=== PATIENT | male | born 1970 | race Caucasian/White ===

== ENCOUNTER 2018-01-05 14:35 | Emergency (ER) | payer SELFPAY ==
[~2018-01-05] VITALS: Ht 165.1 cm; Wt 68.2 kg
[2018-01-05 14:52] LABS: GLUCOSE,POINT OF CARE 179 MG/DL (70-110)
[2018-01-05] MEDS ORDERED: MECLIZINE HCL 25 MG TABLET PO ONE (16:00)
[2018-01-05 17:18] VITALS: BP 123/76
== END 2018-01-05 18:04 | disposition home or self-care (01) ==
LOC: EMS 14:37
DX: R42 Dizziness and giddiness (principal); E11.9 Type 2 diabetes mellitus without complications; F17.210 Nicotine dependence, cigarettes, uncomplicated
CPT/HCPCS: 82962; 93005; 99283